=== PATIENT | female | born 1940 | race Hispanic/Latino ===

== ENCOUNTER 2020-08-05 14:00 | Outpatient (CLI) | payer MEDICARE ==
--- NOTE | 2020-08-05 15:40 | Mammography Report ---
BILATERAL DIGITAL SCREENING MAMMOGRAM WITH TOMOSYNTHESIS AND CAD HISTORY: Screening mammogram. TECHNIQUE: Routine digital mammographic imaging performed. Tomosynthesis images were processed and r eviewed. This examination was interpreted with the benefit of Computer-aided Detection analysis. COMPARISON: 12/14/2018, 12/03/2018, 11/30/2017, 06/03/2016 FINDINGS: Breast Density: scattered fibroglandular appearance of the breast tissue. Digital CC and MLO views demonstrate no mammographic evidence of malignancy. IMPRESSION: No mammographic evidence of malignancy. If the clinical examination remains stable, recommend bilate ral mammogram in approximately one year. BIRADS 1: Negative. FURTHER INFORMATION: According to the [employer], yearly mammograms are recommend ed starting at age 40 and continuing as long as a woman is in good health. Clinical Breast Exams shou ld be part of a periodic health exam-about every 3 years for women in their 20s and 30s and every yea r for women 40 and over. Breast self exam is an option for women starting in their 20s. Any breast ch nancy noted on a breast self exam should be reported promptly to the patient's healthcare provider. Br east MRI is recommended for women with an approximately 20-25% or greater lifetime risk of breast can cer, including women with a strong family history of breast or ovarian cancer and women who have been treated for Hodgkin's disease. A negative Mammography report should not discourage follow up or biopsy of a clinically significant f inding and/or abnormality. Dense breast tissue may obscure small neoplasms. The patient will be entered into a reminder system with a target due date for the next screening mamm ogram. Signer Name: Kam Gonsalves MD Signed: 08/05/2020 3:39 PM Workstation Name: [id number]
== END 2020-08-05 14:01 | disposition home or self-care (01) ==
LOC: SPVWC 14:00
PROVIDERS: ATTEND Surgery
DX: Z12.31 Encounter for screening mammogram for malignant neoplasm of breast (principal)
CPT/HCPCS: 77063; 77067